=== PATIENT | female | born 1960 | race Caucasian/White ===

== ENCOUNTER 2020-01-02 08:30 | Day surgery (SDC) | payer OTHER ==
[~2020-01-02 08:30] MED LIST: Lactated Ringers 1,000 ML IV SCH; Propofol 200 MG/20 ML SDV ONE; Sodium Chloride 0.9% 10 ML Syringe FLUSH PRN
--- NOTE | 2020-01-02 09:54 | PCM.HPR ---
H & P Addendum review - H & P Addendum Review Date of Original H & P: 12/13/19 Date Reviewed: 01/02/20 (n) Time Reviewed: 09:54 Patient was Examined: No Changes
[2020-01-02] MEDS ORDERED: Propofol 200 MG/20 ML SDV ONE (10:00)
--- NOTE | 2020-01-02 10:24 | PCM.OPNOTE ---
- General Post-Op/Procedure Note Date of Surgery/Procedure: 01/02/20 Operative Procedure(s): Colonoscopy Findings: Sig tics Pre Op Diagnosis: FH Colon Ca Post-Op Diagnosis: Same Anesthesia Technique: MAC Primary Surgeon: Agusto Butts Complications: None Condition: Good
--- NOTE | 2020-01-02 14:59 | OR ---
Date of Procedure: 01/02/2020 PREOPERATIVE DIAGNOSIS: Family history of colon cancer in father. POSTOPERATIVE DIAGNOSIS: Sigmoid diverticulosis. PROCEDURE: Colonoscopy. ANESTHESIA: IV sedation. PROCEDURE IN DETAIL: Patient was brought to the procedure room where she was placed on her left side and IV sedation administered. Digital rectal exam was performed which was normal. Colonoscope was inserted and advanced to the level of the cecum without difficulty. Cecal position was confirmed by identifying the appendiceal lumen and the ileocecal valve. Prep was good and surfaces were well visualized. Upon withdrawing the scope, the ascending, transverse, and descending colon were normal in appearance. Sigmoid colon was tortuous with multiple diverticula present. Rectum was normal and retroflexion was normal. Air was removed and the scope withdrawn. Patient tolerated the procedure well and returned to recovery in stable condition. Recommend routine colon screening again in 5 years. RACHEL HUBBARD MD /[id number]
== END 2020-01-02 11:31 | disposition home or self-care (01) ==
LOC: LL.SDS 08:30
PROVIDERS: ATTEND Surgery
DX: Z12.11 Encounter for screening for malignant neoplasm of colon (principal); K57.30 Diverticulosis of large intestine without perforation or abscess without bleeding; Q43.8 Other specified congenital malformations of intestine; I10 Essential (primary) hypertension; E78.5 Hyperlipidemia, unspecified; E03.9 Hypothyroidism, unspecified; F32.9 Major depressive disorder, single episode, unspecified; E66.9 Obesity, unspecified; Z68.41 Body mass index [BMI] 40.0-44.9, adult; Z80.0 Family history of malignant neoplasm of digestive organs; Z88.1 Allergy status to other antibiotic agents; Z79.890 Hormone replacement therapy; Z79.899 Other long term (current) drug therapy
CPT/HCPCS: J2704; J7120